=== PATIENT | female | born 1975 | race Caucasian/White ===

== ENCOUNTER → 2017-05-13 18:58 | Outpatient (CLI) | payer BC, SELFPAY ==
[2017-05-18 15:41] LABS: HPV Reflexed? NOT INDICATED
== END ==
PROVIDERS: Visit Provider Obstetrics & Gynecology
DX: Z12.4 Encounter for screening for malignant neoplasm of cervix (principal)
CPT/HCPCS: 88175; G0145

== ENCOUNTER → 2017-06-30 13:42 | Outpatient (CLI) | payer BC, SELFPAY ==
--- NOTE | 2017-06-30 13:45 | BI_ITS ---
MAMMOGRAPHY - BILATERAL SCREENING REASON FOR EXAM: Female, 42 years old. Routine annual screening examination. PERTINENT HISTORY: Non-contributory. TECHNIQUE: Digital bilateral breast roseann (3D mammographic acquisition) in the CC and MLO projections. 2-D mediolateral oblique (MLO) and craniocaudad (CC) views of both breasts were obtained. CAD: Full Field Digital Mammography with Computer Added Detection was performed. COMPARISON: Comparison is made with prior study of May 26, 2016. FINDINGS: Breast Composition: There are scattered areas of fibroglandular density. There are no dominant masses or suspicious calcifications. There is a 6.9 mm x 4.8 mm well-defined nodular density in the inferior lateral anterior aspect of the right breast. A central fatty notch is seen. This most likely represents a small lymph node. No other significant abnormalities are identified. There has been no significant change since the prior study. BI/SCREENING MAMM (CAD), BILAT IMPRESSION: Stable bilateral screening mammogram. Yearly follow-up mammogram recommended. (A) ASSESSMENT CATEGORY: BIRADS Category 2: Benign. A letter regarding these results will be sent to the patient by the facility within 30 days. Approximately 10% of breast cancers are not detected by mammography. A normal mammogram should not delay biopsy of a clinically suspicious abnormality. [id number] Electronically Signed: Tyrese Terry MD at 8:23 EDT Tel [phone], Service support ,
== END ==
PROVIDERS: Visit Provider Obstetrics & Gynecology
DX: Z12.31 Encounter for screening mammogram for malignant neoplasm of breast (principal)
CPT/HCPCS: 77063; 77067

== ENCOUNTER → 2017-07-06 13:28 | Outpatient (CLI) | payer BC, SELFPAY ==
--- NOTE | 2017-07-06 13:29 | US_ITS ---
STUDY: ULTRASOUND BREAST - RIGHT REASON FOR EXAM: Female, 42 years old. Abnormal screening mammogram. TECHNIQUE: Axial and longitudinal images of the RIGHT breast were performed with a high resolution ultrasound transducer. COMPARISON: Comparison is made with prior mammogram dated June 30, 2017. FINDINGS: RIGHT Breast: There is an 8 mm x 7 mm x 3 mm well-defined hypoechoic nodule with central area of increased echotexture at the 6:00 position breast at 1 cm from the nipple. This corresponds to the mammographic findings. This suggestive of a small lymph node. Routine annual mammographic follow-up is recommended. US/Breast Limited Unilateral IMPRESSION: The mammographic abnormality corresponds to 8 mm x 7 mm x 3 mm well-defined nodular density as described. This most likely represents a small lymph node. ASSESSMENT CATEGORY: BIRADS Category 2: Benign. A letter regarding these results will be sent to the patient by the facility within 30 days. Electronically Signed: Tyrese Terry MD at 14:48 EDT Tel [phone], Service support ,
== END ==
PROVIDERS: Visit Provider Obstetrics & Gynecology
DX: N63.10 Unspecified lump in the right breast, unspecified quadrant (principal); R92.8 Other abnormal and inconclusive findings on diagnostic imaging of breast
CPT/HCPCS: 76642

== ENCOUNTER → 2018-06-30 18:13 | Outpatient (CLI) | payer BC, SELFPAY ==
[2018-07-07 12:56] LABS: HPV Reflexed? NOT INDICATED
== END ==
PROVIDERS: Referring Provider Obstetrics & Gynecology; Visit Provider Obstetrics & Gynecology
DX: Z12.4 Encounter for screening for malignant neoplasm of cervix (principal)
CPT/HCPCS: 88175; G0145

== ENCOUNTER → 2018-07-30 08:08 | Outpatient (CLI) | payer BC, SELFPAY ==
--- NOTE | 2018-07-30 08:12 | BI_ITS ---
MAMMOGRAPHY - BILATERAL SCREENING REASON FOR EXAM: Female, 43 years old. Routine annual screening examination. PERTINENT HISTORY: Non-contributory. TECHNIQUE: Digital bilateral breast roseann (3D mammographic acquisition) in the CC and MLO projections. 2-D mediolateral oblique (MLO) and craniocaudad (CC) views of both breasts were obtained. CAD: Full Field Digital Mammography with Computer Added Detection was performed. COMPARISON: Comparison is made with prior study dated May 26, 2016 and June 30, 2017. FINDINGS: Breast Composition: There are scattered areas of fibroglandular density. There are no dominant masses or suspicious calcifications. Stable 6.9 mm x 4.8 mm well-defined nodule in the inferior lateral anterior aspect of the right breast prior ultrasound demonstrated this to be a small lymph node. No other significant abnormalities are identified. There has been no significant change since the prior study. BI/SCREENING MAMM (CAD), BILAT IMPRESSION: Stable bilateral screening mammogram. Yearly follow-up mammogram recommended. (A) ASSESSMENT CATEGORY: BIRADS Category 2: Benign. A letter regarding these results will be sent to the patient by the facility within 30 days. Approximately 10% of breast cancers are not detected by mammography. A normal mammogram should not delay biopsy of a clinically suspicious abnormality. [id number] Electronically Signed: Tyrese Terry, at 9:19 EDT , Service support ,
== END ==
PROVIDERS: Referring Provider Obstetrics & Gynecology; Visit Provider Obstetrics & Gynecology
DX: Z12.31 Encounter for screening mammogram for malignant neoplasm of breast (principal)
CPT/HCPCS: 77063; 77067

== ENCOUNTER → 2019-09-05 | Outpatient (CLI) | payer BC, SELFPAY ==
[2019-09-12 05:09] LABS: HPV Reflexed? NOT INDICATED
== END | disposition home or self-care (01) ==
LOC: LABSPEC 15:00
PROVIDERS: Visit Provider Obstetrics & Gynecology
DX: Z12.4 Encounter for screening for malignant neoplasm of cervix (principal)
CPT/HCPCS: 88175; G0145

== ENCOUNTER → 2020-06-13 16:30 | Outpatient (CLI) | payer BC, SELFPAY ==
--- NOTE | 2020-06-13 16:33 | RAD_ITS ---
STUDY: X-RAY - LEFT FOOT CLINICAL: Pain in arch of left foot, no specific injury. TECHNIQUE: 3 view(s) of the foot. COMPARISON: None. FINDINGS: There is a small plantar calcaneal enthesophyte. Otherwise, unremarkable talus, calcaneus, and tarsal bones. Normal visualized subtalar, talonavicular, calcaneocuboid, tarsal and tarsometatarsal articulations. Normal metatarsi. Normal metatarsophalangeal joint of the great toe. Normal tibial and fibular sesamoid bones. Normal interphalangeal joint of the great toe. Normal phalanges of the great toe. Normal second through fifth metatarsophalangeal joints. Normal interphalangeal joints and phalanges of the lesser toes. The soft tissue structures are unremarkable. RAD/Foot min 3 Views IMPRESSION: Small plantar calcaneal enthesophyte. Otherwise, unremarkable x-ray examination of the left foot. Electronically Signed: Joel Crum MD at 8:46 EDT Tel , Service support ,
== END ==
PROVIDERS: Referring Provider Podiatrist; Visit Provider Podiatrist
DX: M19.072 Primary osteoarthritis, left ankle and foot (principal)
CPT/HCPCS: 73630

== ENCOUNTER → 2020-07-12 07:55 | Outpatient (CLI) | payer BC, SELFPAY ==
--- NOTE | 2020-07-12 08:30 | MRI_ITS ---
STUDY: MRI LEFT MIDFOOT REASON FOR EXAM: Female, 45 years old. stress fracture left foot TECHNIQUE: Standardized fat and water weighted pulse sequences were obtained in all 3 orthogonal planes. COMPARISON: X-ray dated 06/13/2020. FINDINGS: Chronic thickening of the Lisfranc ligament (coronal image 8 series 6). Normal visualized flexor and extensor tendons. No acute fracture, dislocation or bone destruction. Well-corticated first metatarsal cyst/erosion (sagittal image 4 series 8). Normal talonavicular cartilage. Normal calcaneocuboid cartilage. Normal navicular cuneiform cartilage. Normal tarsal metatarsal joints. Mild first metatarsophalangeal joint arthrosis. Mild fifth metatarsophalangeal joint arthrosis. Normal secondary fourth metatarsophalangeal joints. Minimal joint space narrowing at the digits. 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 No solid, cystic or lipomatous soft tissue lesions. No significant soft tissue swelling. No muscle atrophy. MRI/Lower Ext/No Jt/w/o IMPRESSION: No acute stress fracture Chronic Lisfranc ligament thickening/sprain Well-corticated first metatarsal head cyst/erosion Mild osseous degenerative features, as above Electronically Signed: Dejan Martin DO at 9:28 EDT Tel , Service support ,
== END ==
PROVIDERS: Referring Provider Podiatrist; Visit Provider Podiatrist
DX: M84.375D Stress fracture, left foot, subsequent encounter for fracture with routine healing (principal); X58.XXXD Exposure to other specified factors, subsequent encounter
CPT/HCPCS: 73718

== ENCOUNTER → 2020-11-21 08:38 | Outpatient (CLI) | payer BC, SELFPAY ==
--- NOTE | 2020-11-21 08:42 | BI_ITS ---
MAMMOGRAPHY - BILATERAL SCREENING 3-D TOMOSYNTHESIS REASON FOR EXAM: Female, 45 years old. SCREENING PERTINENT HISTORY: No significant family history. TECHNIQUE: 2-D mammograms and 3-D Tomosynthesis of the breast (s) were performed. CAD was performed. COMPARISON: 07/30/2018 FINDINGS: The breast composition is composed of scattered fibroglandular density. Scattered benign calcifications are seen. No dense spiculated masses or suspicious microcalcifications are identified. No architectural distortion is identified. There is no skin thickening or retraction. There has been no significant change since the prior study. BI/SCRN MAMM (CAD)W/ATUL BILAT IMPRESSION: No mammographic signs of malignancy. Routine yearly mammograms recommended. ASSESSMENT CATEGORY: BIRADS Category 1: Negative. A letter regarding these results will be sent to the patient by the facility within 30 days. FOLLOW UP RECOMMENDATION: Yearly follow up mammogram recommended. (A) Approximately 10% of breast cancers are not detected by mammography. A normal mammogram should not delay biopsy of a clinically suspicious abnormality. Electronically Signed: Michael Macias MD at 10:56 EDT Tel , Service support ,
== END ==
PROVIDERS: Referring Provider Obstetrics & Gynecology; Visit Provider Obstetrics & Gynecology
DX: Z12.31 Encounter for screening mammogram for malignant neoplasm of breast (principal)
CPT/HCPCS: 77063; 77067

== ENCOUNTER 2021-09-27 06:43 | Emergency (ER) | payer BC, SELFPAY ==
[2021-09-27 06:45] VITALS: BP 104/69; PULSE 70; RESP 15; TEMP 36.7; O2SAT 98; BMI 25.9
--- NOTE | 2021-09-27 06:48 | NURSING ---
NO OLD EKGS
--- NOTE | 2021-09-27 07:07 | CT_ITS ---
STUDY: CT BRAIN WITHOUT CONTRAST REASON FOR EXAM: Female, 46 years old. Facial injury due to syncopal episode. RADIATION DOSAGE (If Supplied By Facility): CTDIvol = ( 47.06 ) mGy, DLP = ( 890.33 ) mGycm TECHNIQUE: Transaxial CT imaging of the brain was performed without administration of intravenous contrast material. Individualized dose optimization techniques were used for this CT. COMPARISON: No relevant priors. FINDINGS: Normal soft tissue structures. Normal calvarium. Normal size ventricles and extra-axial spaces for the patient''s age. Normal white matter tracts of the cerebral hemispheres. Normal basal ganglia and thalami. Normal brainstem. Normal cerebellum. There is no intracranial hemorrhage. There are no findings of an acute ischemic infarction. Mild mucosal thickening of the ethmoid sinuses. CT/Brain/Head without Contrast IMPRESSION: Normal unenhanced CT scan of the brain. Electronically Signed: Tyrese Terry MD at 8:17 EDT ,
--- NOTE | 2021-09-27 07:07 | EKG12_ITS ---
Test Reason : SYNCOPE Blood Pressure : / mmHG Vent. Rate : 064 BPM Atrial Rate : 064 BPM P-R Int : 116 ms QRS Dur : 090 ms QT Int : 406 ms P-R-T Axes : 027 077 056 degrees QTc Int : 418 ms Normal sinus rhythm Normal ECG Confirmed by HOLLIS CANCINO, MARYCRUZ ([id number]), sports editor DIANELYS RALPH ([id number]) on 10/01/2021 8:51:36 AM Referred By: BB Confirmed By:MARYCRUZ SHAFER MD
--- NOTE | 2021-09-27 07:10 | EX.ED.DYSGE1 ---
HPI History of Present Illness Chief Complaint: Syncope Informant: patient and spouse/S.O. Narrative Narrative: This is overall healthy patient who had a syncopal episode this morning. She went and sat down on the toilet. She started to feel very nauseated. She called her . But as he came in she fell forward and hit her face on the ground. She is not nauseated now. She did not have chest pain palpitations. She did not actually vomit. No diarrhea. She has not done this before. She has had a sore throat for about a day. 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 She has not had fevers or chills. No coughing or trouble breathing. No diarrhea or abdominal pain. Only pain she has is in the face and nose area. Nothing really made her symptoms better or worse. PFSH PFSH Medical History no medical history Home Medications ondansetron 4 mg disintegrating tablet 4 mg PO Q8H PRN nausea and vomiting #10 tabs 09/27/21 [Rx Last Taken Unknown] Allergy/AdvReac Type Severity Reaction Status Date / Time No Known Allergies Allergy Verified 07/11/14 09:50 Social History Smoking Status: Never smoker ROS ROS ED Constitutional Constitutional ED: Denies chills, fever(s) or subjective Eyes Eyes: Denies change in vision ENT ENT ED: Reports sore throat; Denies ear pain or rhinorrhea Cardiovascular Cardiovascular: Denies chest pain, palpitations or racing heartbeat Respiratory/Chest Respiratory/Chest: Denies cough or dyspnea Gastrointestinal Gastrointestinal: Reports nausea; Denies abdominal pain, diarrhea or vomiting Genitourinary Genitourinary ED: Denies dysuria Musculoskeletal Musculoskeletal: Denies back pain or myalgias Integumentary Reports Abrasions Neurologic Neurologic: Reports headache(s); Denies paresthesias or weakness Endocrine Endocrinology: Denies polydipsia or polyuria Hematologic/Lymphatic Hematologic/Lymphatic: Denies easy bleeding or easy bruising EXAM Physical Exam Const Vital Signs: 09/27/21 06:45 Temperature 98.1 F Temperature Source Oral Pulse Rate 70 Respiratory Rate 15 Blood Pressure 104/69 Blood Pressure Mean 80 Pulse Ox 98 Oxygen Delivery Method Room Air Positive well nourished and well developed General Appearance ED: well developed and NAD HEENT Reports moist mucous membranes HEENT Narrative: Obvious abrasion to the bridge of the nose with some mild swelling. No lateralizing motion is noted. No septal hematoma. No bleeding. Teeth meet normally. Throat is minimally red but does not show exudate. Voice is normal. Swallowing is normal. Eyes PERRL and EOMs intact bilaterally Neck no lymphadenopathy Chest Wall inspection of chest normal Resp normal respiratory effort and clear to auscultation bilaterally Auscultation: Negative for rales, rhonchi or wheezes Cardio regular rate, regular rhythm and no murmurs GI normal to inspection, nondistended, normoactive bowel sounds and non-tender Back/Spine no CVA tenderness Extremity normal to inspection Extremity Narrative: No cords edema or asymmetry. General Extremety ED: Negative for edema or tenderness General Extremity: Negative for edema Neuro oriented x3 Sensorium / Orientation: alert Psych mental status grossly normal Skin Skin Narrative: Abrasions to bridge of nose MDM MDM MDM Narrative Medical decision making narrative: CBC is normal. Electrolytes are overall normal. Troponin is negative. is negative. CT scan of the head and the face show no acute process. There is mild thickening in the right maxillary sinus and ethmoid sinuses. Patient has mild nausea. She thinks is just related to hitting her head. She has no abdominal pain or chest pain. I discussed checking for COVID but she does not want to do this. 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 We will get her home at this time. We discussed reasons to return. Lab Data Attestation: I reviewed the patient's lab results. Labs: Laboratory Results - last 24 hr 09/27/21 09/27/21 09/27/21 07:20 07:20 07:20 WBC 6.8 RBC 4.54 Hgb 13.4 Hct 40.4 MCV 89.0 MCH 29.5 MCHC 33.2 RDW Std Deviation 41.2 RDW Coeff of Abel 12.5 Plt Count 194 MPV 10.2 Immature Gran % (Auto) 0.300 Neut % (Auto) 75.2 H Lymph % (Auto) 12.6 L [place] % (Auto) 10.4 H Eos % (Auto) 0.6 Baso % (Auto) 0.9 Absolute Neuts (auto) 5.1 Absolute Lymphs (auto) 0.86 Nucleated RBC % 0 Sodium 138 Potassium 3.9 Chloride 108 H Carbon Dioxide 25.0 Anion Gap 5 BUN 8 Creatinine 0.63 Estim Creat Clear Calc 87.31 Est GFR (MDRD) Af Amer 131 Est GFR (MDRD) Non-Af 108 BUN/Creatinine Ratio 12.8 Glucose 109 H Calcium 9.4 Troponin I High Sens < 3 L Serum , Qual NEGATIVE Radiography Diagnostic Testing: Clinical Impression(s) from Imaging Studies Brain CT 09/27/21 07:07 IMPRESSION: Normal unenhanced CT scan of the brain. Electronically Signed: Tyrese Terry MD at 8:17 EDT , Facial/Sinus 09/27/21 08:11 IMPRESSION: Mild degree mucosal thickening of the right maxillary sinus and the ethmoid sinuses. Electronically Signed: Tyrese Terry MD at 8:41 EDT , EKG Initial EKG: Comments: EKG done for syncopal episode read by me shows normal sinus rhythm with overall rate of 64. No ectopy. No acute ST elevation or depression. ID interval QRS duration and QTC are normal. Discharge Plan Triage Chief Complaint: Syncope ED Provider: Rip Waggoner Dx/Rx/DC Orders Clinical Impression: Syncope, Sore throat, Nausea Instructions: ED Fainting, Uncertain Cause Prescriptions: New ondansetron 4 mg tablet,disintegrating 4 mg PO Q8H PRN (Reason: nausea and vomiting) Qty: 10 0RF Primary Care Provider: Fan Trent Referrals: Fan Trent MD [Primary Care Provider] - 3-5 Days Disposition Disposition: Home, Self Care
[2021-09-27 07:46] LABS: Absolute Lymphocyte Count 0.86 X10^3/uL (0.83-4.51); Absolute Neutrophil Count 5.1 X10^3/uL (2.0-7.7); Basophil# 0.06 X10^3/uL; Basophil% 0.9 % (0-1); Eosinophil# 0.04 X10^3/uL; Eosinophils% 0.6 % (0-5); Hematocrit 40.4 % (37-47); Hemoglobin 13.4 g/dL (12.0-15.0); Lymphocyte # 0.86 X10^3/ul (0.83-4.51); Lymphocyte % 12.6 % (19-41); Mean Corp Hgb Conc 33.2 g/dL (32-36); Mean Corpuscular Hgb 29.5 pg (27.0-32.0); Mean Platelet Vol. 10.2 fl (6.2-12.0); Monocyte# 0.71 X10^3/uL; Monocyte% 10.4 % (0-10); NRBC Flagged by Analyzer 0 % (0-5); Neutrophil # 5.11 X10^3/uL (2.7-7.7); Neutrophil % 75.2 % (47-70); Platelet Count 194 K/mm3 (150-450); RBC Distribution Width CV 12.5 % (11.6-14.6); RBC Distribution Width SD 41.2 fl (35.1-43.9); Red Blood Count 4.54 M/mm3 (4.2-5.4); White Blood Count 6.8 K/mm3 (4.4-11.0)
[2021-09-27 07:56] LABS: Internal QC Validated? YES +Cl - CLEAR BKGD; Pregnancy, Serum, hCG Quali. NEGATIVE Negative
[2021-09-27 08:01] LABS: Anion Gap 5 (5-15); BUN 8 mg/dL (7-18); BUN/Creat Ratio 12.8 RATIO (10-20); Calcium,Total 9.4 mg/dL (8.5-10.1); Chloride 108 mmol/L (98-107); Creatinine, Serum 0.63 mg/dL (0.55-1.02); EST Glomerular Filtration Rate 108 mL/min (>60); Est Glom Filt Rate - Afr Amer 131 mL/min (>60); Estimated Creatinine Clearance 87.31 ml/min; Glucose 109 mg/dL (74-106); Potassium 3.9 mmol/L (3.5-5.1); Sodium Level 138 mmol/L (136-145); Troponin-I HS < 3 pg/mL (3.0-54.0)
--- NOTE | 2021-09-27 08:11 | CT_ITS ---
STUDY: CT FACIAL BONES WITHOUT CONTRAST REASON FOR EXAM: Female, 46 years old. Trauma RADIATION DOSAGE (If Supplied By Facility): CTDIvol = ( 25.01 ) mGy, DLP = ( 504.88 ) mGycm TECHNIQUE: The patient was scanned in a multi detector CT scanner. Sagittal and coronal images were reconstructed. Individualized dose optimization techniques were used for this CT. COMPARISON: None. FINDINGS: Normal soft tissue structures. Normal orbital garland and orbital contents. Normal nasal bones and anterior nasal spine. Normal facial bones. There is no demonstrated fracture. Mild degree of mucosal thickening of the right maxillary sinus. Mild degree of mucosal thickening of the ethmoid sinuses. CT/Sinus/Facial Bone IMPRESSION: Mild degree mucosal thickening of the right maxillary sinus and the ethmoid sinuses. Electronically Signed: Tyrese Terry MD at 8:41 EDT ,
[2021-09-27] MEDS: Ondansetron ODT 4 MG Tablet PO (09:39)
[2021-09-27 09:45] VITALS: BP 103/66; PULSE 70; RESP 18; O2SAT 97
== END 2021-09-27 09:47 | disposition home or self-care (01) ==
PROVIDERS: Emergency Provider Emergency Medicine; PCP Family Medicine; Visit Provider Emergency Medicine
DX: R55 Syncope and collapse (principal); J02.9 Acute pharyngitis, unspecified; R11.0 Nausea; S00.31XA Abrasion of nose, initial encounter; W01.198A Fall on same level from slipping, tripping and stumbling with subsequent striking against other object, initial encounter; Y92.002 Bathroom of unspecified non-institutional (private) residence as the place of occurrence of the external cause
CPT/HCPCS: 70450; 70486; 80048; 84484; 84703; 85025; 87880; 93005; 96360; 96361; 99284; J7040